=== PATIENT | female | born 1955 | race American Indian/Alaskan Native ===

== ENCOUNTER 2017-08-18 10:20 | Outpatient (CLI) | payer MEDICARE ==
--- NOTE | 2017-08-18 12:44 | Cat Scan Report ---
FINAL REPORT EXAM: CT SINUSES WO CON HISTORY: ACUTE ETHMOIDAL SINUSITIS TECHNIQUE: CT examination of the paranasal sinus region without IV contrast PRIORS: None. FINDINGS: Fracture or focal osseous lesion: None Visualized mastoid air cells: Clear Visualized middle ear cavities: Clear Frontal sinuses: Clear Ethmoid sinuses: Trace mucosal thickening bilateral, slightly more on the left Sphenoid sinuses: Trace mucosal thickening bilateral anterior Maxillary sinuses: Trace mucosal thickening bilateral, slightly more prominent on the right Acute fluid level: None Maxillary infundibulum patent bilateral Nasal turbinates normal bilateral Nasal septum relatively midline IMPRESSION: Multifocal trace mucosal thickening without CT evidence of acute fluid level
== END 2017-08-18 10:21 | disposition home or self-care (01) ==
LOC: CT 10:20
PROVIDERS: ATTEND Otolaryngology
DX: J01.20 Acute ethmoidal sinusitis, unspecified (principal); J34.3 Hypertrophy of nasal turbinates
CPT/HCPCS: 70486

== ENCOUNTER 2017-08-23 11:00 | Outpatient (CLI) | payer MEDICARE | END 2017-08-23 11:01 | disposition home or self-care (01) | LOC: SLR 11:00 | PROVIDERS: ATTEND Otolaryngology | DX: G47.30 Sleep apnea, unspecified (principal) | CPT/HCPCS: 95810 ==